=== PATIENT | male | born 1980 | race Two or more races ===

== ENCOUNTER 2018-03-29 01:17 | Emergency (ER) | payer SELFPAY ==
[~2018-03-29] VITALS: Ht 177.8 cm; Wt 171.0 kg
[2018-03-29 01:23] VITALS: BP 168/106
== END 2018-03-29 03:08 | disposition left against medical advice (07) ==
LOC: ER 01:17
DX: Z53.21 Procedure and treatment not carried out due to patient leaving prior to being seen by health care provider (principal)